=== PATIENT | male | born 1960 | race Caucasian/White ===

== ENCOUNTER 2024-06-11 16:21 | Emergency (ER) | payer SELFPAY ==
[~2024-06-11] VITALS: Ht 175.2 cm; Wt 53.5 kg
[~2024-06-11 16:21] MED LIST: BACTRIM DS 8001 TA1 PO; HYDROCODONE BIT1 T11 PO; KEFLEX500 M1 PO; MOTRIN800 MG PO; NAPROSYN500 MG PO; OMNICEF300 MG PO; PEN-VEE K500 MG PO; ZYRTEC10 MG PO
[2024-06-11] MEDS ORDERED: methylPREDNISolone sod succ 125 MG VIAL IM ONE (17:00)
[2024-06-11 17:10] LABS: BASO % 0.4 % (0.0-1.0); HEMATOCRIT 44.8 % (42.0-52.0); MEAN CELL VOLUME 94.7 fl (80.0-94.0); MEAN CORPUSCULAR HGB 31.5 pg (27.0-31.0); MEAN CORPUSCULAR HGB CONC 33.3 g/dl (33.0-37.0); MEAN PLATELET VOLUME 9.3 fl (9.6-12.3); MONO # 0.4 10*3/uL (0.1-1.0); MONO % 8.8 % (3.0-9.0); NEUT # 3.8 10*3/uL (2.3-7.9); NEUT % 84.2 % (47.0-73.0); PLATELET COUNT AUTOMATED 159 10*3/uL (130-400); RED BLOOD COUNT 4.73 10*6/uL (4.50-5.90); RED CELL DISTRI WIDTH 12.6 % (0-14.5); WHITE BLOOD COUNT 4.5 10*3/uL (4.8-10.8)
[2024-06-11 17:31] LABS: BUN 16 mg/dl (9-23); CHLORIDE 96 mmol/L (98-107); POTASSIUM 4.2 mmol/L (3.4-5.1)
[2024-06-11] MEDS ORDERED: ACETAMINOPHEN 325 MG TAB PO ONE (17:45)
[2024-06-11] MEDS ORDERED: TAMIFLU 75MG CA75 MG PO (18:50)
== END 2024-06-11 18:56 | disposition home or self-care (01) ==
LOC: ED 16:21
PROVIDERS: Physician Assistant Medical
DX: J10.1 Influenza due to other identified influenza virus with other respiratory manifestations (principal); Z20.822 Contact with and (suspected) exposure to COVID-19